=== PATIENT | male | born 1950 | race Caucasian/White ===

== ENCOUNTER 2023-10-17 08:57 | Outpatient (RCR) | payer MEDICARE, OTHER | END 2023-10-18 | LOC: M ST 08:57 | PROVIDERS: ATTEND Obstetrics & Gynecology Hospice and Palliative Medicine | DX: G20.C Parkinsonism, unspecified (principal); R47.89 Other speech disturbances ==

== ENCOUNTER → 2023-12-24 | Outpatient (CLI) | payer MEDICARE, OTHER ==
[2023-12-24 10:05] LABS: HEMATOCRIT 49.8 % (42.0-52.0); HEMOGLOBIN 16.4 g/dl (13.5-17.5); MEAN CORPUSCULAR HEMOGLOBIN 30.5 pg (27.0-33.0); MEAN CORPUSCULAR HGB CONC 32.9 g/dl (32.0-36.5); MEAN CORPUSCULAR VOLUME 92.7 fl (80.0-96.0); PLATELET COUNT, AUTOMATED 223 10^3/uL (150-450); RED BLOOD COUNT 5.37 10^6/uL (4.30-6.10); WHITE BLOOD COUNT 3.4 10^3/uL (4.0-10.0)
[2023-12-24 10:33] LABS: HEMOGLOBIN A1c 5.1 % (4.0-6.0)
[2023-12-24 10:35] LABS: CREATININE, URINE 95.5 MG/DL; PSA SCREENING 1.16 NG/ML (< 4.00)
[2023-12-24 10:36] LABS: C REACTIVE PROTEIN QUANTITATIV < 0.40 MG/DL (<1.0); MAU/CREAT RATIO 27.2 MCG/MG (0.0-30.0)
[2023-12-24 10:38] LABS: ALBUMIN 3.7 G/DL (3.2-5.2); ALKALINE PHOSPHATASE 104 U/L (46-116); ALT/SGPT 18 U/L (7.0-40); AST/SGOT 17 U/L (<34); BILIRUBIN,TOTAL 0.6 MG/DL (0.3-1.2); BLOOD UREA NITROGEN 25 MG/DL (9-23); CALCIUM LEVEL 9.2 MG/DL (8.3-10.6); CARBON DIOXIDE LEVEL 31 MMOL/L (20-31); CHLORIDE LEVEL 107 MMOL/L (98-107); CHOLESTEROL LEVEL 142 MG/DL (<200); CHOLESTEROL RISK RATIO 2.64 (<5); CREATININE FOR GFR 0.81 MG/DL (0.70-1.30); FREE T4 1.08 NG/DL (0.89-1.76); GLOMERULAR FILTRATION RATE > 60.0 (>42); GLUCOSE, FASTING 87 MG/DL (74-106); HDL CHOLESTEROL 53.6 MG/DL (>40); LDL CHOLESTEROL 70.4 MG/DL (<100); NON-HDL-C 88.4 MG/DL; POTASSIUM SERUM 4.3 MMOL/L (3.5-5.1); SODIUM LEVEL 141 MMOL/L (136-145); TOTAL PROTEIN 6.8 G/DL (5.7-8.2); TRIGLYCERIDES LEVEL 90 MG/DL (<150)
[2023-12-24 10:39] LABS: THYROID STIMULATING HORMONE 1.354 uIU/ML (0.55-4.78)
[2023-12-24 10:40] LABS: TOTAL 25(OH) VITAMIN D 68.3 NG/ML (20.0-100.0); VITAMIN B12 LEVEL 636 PG/ML (211-911)
[2023-12-26 17:07] LABS: FREE KAPPA LIGHT CHAINS SERUM 25.8 mg/L (3.3-19.4); FREE LAMBDA LIGHT CHAINS SERUM 15.1 mg/L (5.7-26.3); KAPPA/LAMBDA RATIO SERUM 1.71 (0.26-1.65)
== END ==
LOC: M PLALAB 08:24
PROVIDERS: ATTEND Internal Medicine Hematology
DX: Z13.1 Encounter for screening for diabetes mellitus (principal); Z12.5 Encounter for screening for malignant neoplasm of prostate; Z79.899 Other long term (current) drug therapy
CPT/HCPCS: 36415; 80053; 80061; 82043; 82306; 82607; 83036; 83521; 84155; 84165; 84439; 84443; 85027; 86140; G0103

== ENCOUNTER → 2024-03-03 | Outpatient (REF) | payer MEDICARE, OTHER | LOC: M SFHCDERM 07:54 | PROVIDERS: ATTEND Physician Assistant | DX: L57.0 Actinic keratosis (principal) ==

== ENCOUNTER → 2025-01-15 | Outpatient (REF) | payer MEDICARE, OTHER ==
[2025-01-16 11:14] LABS: HEMATOCRIT 49.6 % (42.0-52.0); HEMOGLOBIN 16.6 g/dl (13.5-17.5); MEAN CORPUSCULAR HEMOGLOBIN 31.1 pg (27.0-33.0); MEAN CORPUSCULAR HGB CONC 33.5 g/dl (32.0-36.5); MEAN CORPUSCULAR VOLUME 92.9 fl (80.0-96.0); PLATELET COUNT, AUTOMATED 233 10^3/uL (150-450); RED BLOOD COUNT 5.34 10^6/uL (4.30-6.10); WHITE BLOOD COUNT 5.5 10^3/uL (4.0-10.0)
[2025-01-16 11:31] LABS: CHOLESTEROL RISK RATIO 2.25 (<5); HDL CHOLESTEROL 67.3 MG/DL (>40); LDL CHOLESTEROL 70.1 MG/DL (<100); NON-HDL-C 84.7 MG/DL; URIC ACID 3.8 MG/DL (3.7-9.2)
[2025-01-16 12:03] LABS: HEMOGLOBIN A1c 5.1 % (4.0-6.0)
== END ==
LOC: M SFHCPLAZ 10:06
PROVIDERS: ATTEND Student in an Organized Health Care Education/Training Program
DX: Z00.00 Encounter for general adult medical examination without abnormal findings (principal); M79.674 Pain in right toe(s); Z79.899 Other long term (current) drug therapy

== ENCOUNTER → 2025-01-30 | Outpatient (CLI) | payer MEDICARE, OTHER | LOC: M PLAIMG 08:20 | PROVIDERS: ATTEND Student in an Organized Health Care Education/Training Program | DX: M79.674 Pain in right toe(s) (principal); M77.31 Calcaneal spur, right foot; M19.041 Primary osteoarthritis, right hand ==